=== PATIENT | female | born 1985 | race Caucasian/White ===

== ENCOUNTER 2021-10-05 08:00 | Emergency (ER) | payer SELFPAY | END 2021-10-05 09:36 | disposition home or self-care (01) | LOC: ER 08:00 | DX: N39.0 Urinary tract infection, site not specified (principal); F17.210 Nicotine dependence, cigarettes, uncomplicated; Z91.011 Allergy to milk products ==

== ENCOUNTER → 2022-01-23 | Outpatient (CLI) | payer OTHER ==
[~2022-01-23] MED LIST: ALBU90OI INH; AMOCLA500 PO; AMOX500 PO; AMOX875 PO; AZIT250 PO; Albuterol17 G1 INH; BELPTAB PO; Bactrim Ds Tab1 EACH PO; CEFD300 PO; CEPH500; CEPH500 PO; CIPR500 PO; CODGUAEL PO; CRUTCH4 USE; CYCL10 PO; Ciloxan5 ML BOTHEYES; Cortisporin Ey7.5 ML BOTHEYES; DELTASONE20 MG PO; DESO.05TCA TOP; DEXATRIM; DIAZ10 PO; Diflucan150 MG PO; ERYT.5TO OS; ESCI10; FLUO10 PO; GUAI600T33; HYDACE10B PO; HYDACE5 PO; HYDACE7.5 PO; HYDHOMSY PO; HYDR1TAB94 PO; HYDR25SUP PR; IBUP600 PO; IBUP800 PO; KETO10 PO; LABE200 PO; LAVAP4L PO; Levaquin500 MG PO; MEDR150I; META800 PO; MULVITMINE PO; Multiple Vitam1 EAC1 PO; NAPR500 PO; NEOCOLOTSU AU; Norco 5-325 Ta1 EACH PO; Nystatin15 GM TOP; ONDA4ODT MM; ORTHOTRICYCLINE; OXYACE5T PO; PENVK500 PO; PERM5TC TOP; PRED10 PO; PROM25 PO; Percocet 10-321 EACH PO; RXHYDACE PO; RXONDA4ODT MM; TOBDEXOPSU OP; TRIHYD PO; Tessalon Perle100 MG PO; VENL37.5ER PO; VICODIN 5-3001 EACH PO; Zithromax250 MG PO; Zofran Odt4 MG PO; Zofran Odt8 MG SL
[2022-01-23 10:28] LABS: BASOPHILS ABSOLUTE AUTO 0.04 K/mm3 (0.00-0.23); BASOPHILS PERCENT AUTO 1 % (0-2); EOSINOPHILS ABSOLUTE AUTO 0.09 K/mm3 (0.00-0.68); EOSINOPHILS PERCENT AUTO 1 % (0-6); Hematocrit 45.2 % (33.0-51.0); Hemoglobin 15.2 g/dL (11.5-16.0); IMMATURE GRAN ABSOLUTE AUTO 0.02 K/mm3 (0.00-0.10); IMMATURE GRAN PERCENT AUTO 0 % (0-1); LYMPHOCYTES ABSOLUTE AUTO 1.54 K/mm3 (0.84-5.20); LYMPHOCYTES PERCENT AUTO 20 % (21-46); MONOCYTES ABSOLUTE AUTO 0.43 K/mm3 (0.16-1.47); MONOCYTES PERCENT AUTO 6 % (4-13); Mean Corpuscular HGB 29.6 pg (26.0-34.0); Mean Corpuscular HGB Conc 33.6 g/dL (31.5-36.5); Mean Corpuscular Volume 88 fL (80-100); NEUTROPHILS ABSOLUTE AUTO 5.59 K/mm3 (1.96-9.15); NEUTROPHILS PERCENT AUTO 72 % (41-73); Platelet Count 241 K/mm3 (150-400); RDW Coefficient Variation 12.4 % (11.7-14.2); RDW Standard Deviation 40.1 fL (35.1-46.3); Red Blood Cell Count 5.14 M/mm3 (3.80-5.20); White Blood Cell Count 7.71 K/mm3 (4.00-11.30)
[2022-01-23 10:40] LABS: Albumin, Blood 3.7 g/dL (3.4-5.0); Albumin/Globulin Ratio 0.9 (0.8-1.8); Bilirubin, Total 0.5 mg/dL (0.1-1.0); Bun/Creatinine Ratio 13.8 (12.0-20.0); Calcium, Blood 8.7 mg/dL (8.5-10.1); Creatinine, Blood 0.65 mg/dL (0.40-1.00); Globulin, Blood 3.9 g/dL (2.2-4.0); Potassium, Blood 4.1 mmol/L (3.5-5.5); Total Protein, Blood 7.6 g/dL (6.4-8.2)
== END | disposition home or self-care (01) ==
LOC: LAB SHORT 10:22 → LAB 10:22
PROVIDERS: Family Medicine
DX: J06.9 Acute upper respiratory infection, unspecified (principal)
CPT/HCPCS: 80053; 85025

== ENCOUNTER → 2022-04-21 | Outpatient (CLI) | payer OTHER ==
[2022-04-22 15:12] LABS: HPV 16 Negative (Negative); HPV 18 Negative (Negative); HPV OTHER HR TYPES Negative (Negative)
== END | disposition home or self-care (01) ==
LOC: LAB 11:30 → LAB SHORT 11:30
PROVIDERS: Obstetrics & Gynecology
DX: Z01.419 Encounter for gynecological examination (general) (routine) without abnormal findings (principal)
CPT/HCPCS: 87624; G0145